=== PATIENT | male | born 1955 | race Caucasian/White ===

== ENCOUNTER 2024-09-27 12:30 | Emergency (ER) | payer OTHER, SELFPAY ==
[2024-09-27 12:43] VITALS: PULSE 91; RESP 20; O2SAT 98
[2024-09-27 13:06] VITALS: BP 171/99; PULSE 88; RESP 18; TEMP 36.9; O2SAT 99; BMI 26.9
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
== END 2024-09-27 15:31 | disposition home or self-care (01) ==
PROVIDERS: Emergency Provider Emergency Medicine; PCP Physician Assistant
DX: S19.9XXA Unspecified injury of neck, initial encounter (principal); Y04.8XXA Assault by other bodily force, initial encounter
CPT/HCPCS: 70360; 99283